=== PATIENT | female | born 1955 | race Caucasian/White ===

== ENCOUNTER 2019-03-19 17:50 | Emergency (ER) | payer BC, MEDICARE ==
[2019-03-19] MEDS ORDERED: Alteplase 2 MG Vial IVPUSH ONE (18:27)
--- NOTE | 2019-03-19 18:34 | EDM.PDOC ---
<JoyaLona Mitch - Last Filed: 03/19/19 19:16> ED HPI GENERAL MEDICAL PROBLEM - General Chief Complaint: IV Access Related Stated Complaint: CHECK OUT PICK LINE Time Seen by Provider: 03/19/19 19:20 Source of Information: Reports: Patient History Limitations: Reports: No Limitations - History of Present Illness INITIAL COMMENTS - FREE TEXT/NARRATIVE: ED for Alteplase for blocked chemo port. Stated attempted to have flushed 2 times in [place] today and unable . Told By Oncology to come here. Right Knee Pain Score (Numeric/FACES): 7 - Related Data Allergies Allergy/AdvReac Type Severity Reaction Status Date / Time Penicillins Allergy Hives Verified 03/19/19 18:51 Sulfa (Sulfonamide Allergy Hives Verified 03/19/19 18:51 Antibiotics) mushrooom Allergy Airway Uncoded 03/19/19 18:51 Tightness Course - Vital Signs Last Recorded V/S: Last Vital Signs Temp 98.4 F 03/19/19 18:10 Pulse 76 03/19/19 18:10 Resp 20 03/19/19 18:10 BP 186/74 H 03/19/19 18:10 Pulse Ox 97 03/19/19 18:10 - Orders/Labs/Meds Meds: Medications Discontinued Medications Generic Name Dose Route Start Last Admin Trade Name Judd PRN Reason Stop Dose Admin Alteplase, Recombinant 2 mg 03/19/19 18:27 03/19/19 18:54 Cathflo Activase IVPUSH 03/19/19 18:28 2 mg ONETIME ONE Administration - Radiology Interpretation Free Text/Narrative:: TC Dr Theodore Oncology, Alteplase 2mg IV recommended. If unable to flush Line following Alteplace. Patient should call Home Infusion team in AM. Departure - Departure Disposition: Home, Self-Care 01 Clinical Impression: Occluded PICC line Qualifiers: Encounter type: initial encounter Qualified Code(s): T82.898A - Other specified complication of vascular prosthetic devices, implants and grafts, initial encounter - Discharge Information Forms: ED Department Discharge Additional Instructions: Follow up with Home Care infusion at [facility] Sepsis Event Note - Evaluation Sepsis Screening Result: No Definite Risk - Focused Exam Vital Signs: Vital Signs Temp Pulse Resp BP Pulse Ox 03/19/19 18:10 98.4 F 76 20 186/74 H 97 Date Exam was Performed: 03/19/19 Time Exam was Performed: 19:16 <Haydee Huynh - Last Filed: 03/19/19 19:44> ED HPI GENERAL MEDICAL PROBLEM - History of Present Illness Onset: Today, Sudden ED ROS GENERAL - Review of Systems Review Of Systems: Comprehensive ROS is negative, except as noted in HPI. ED EXAM, GENERAL - Physical Exam Exam: See Below Exam Limited By: No Limitations General Appearance: Alert, WD/WN, No Apparent Distress Eye Exam: Bilateral Eye: EOMI, Normal Inspection Ears: Normal External Exam, Hearing Grossly Normal Nose: Normal Inspection Throat/Mouth: Normal Inspection, Normal Voice, No Airway Compromise Head: Atraumatic, Normocephalic Neck: Normal Inspection Respiratory/Chest: No Respiratory Distress, Lungs Clear, Normal Breath Sounds, No Accessory Muscle Use, Chest Non-Tender Cardiovascular: Normal Peripheral Pulses, No Edema, No JVD, No Murmur, No Rub, Gallop/S3 Peripheral Pulses: 2+: Radial (L), Radial (R) GI/Abdominal: Normal Bowel Sounds, Soft, Non-Tender (Female) Exam: Deferred Rectal (Female) Exam: Deferred Back Exam: Normal Inspection, Full Range of Motion, NT Extremities: Normal Inspection, Normal Range of Motion, Non-Tender, Normal Capillary Refill, No Pedal Edema Neurological: Alert, Oriented, CN II-XII Intact, Normal Cognition, Normal Gait, Normal Reflexes, No Motor/Sensory Deficits Psychiatric: Normal Affect, Normal Mood Skin Exam: Warm, Dry, Intact, Normal Color, No Rash Lymphatic: No Adenopathy Course - Re-Assessments/Exams Free Text/Narrative Re-Assessment/Exam: 03/19/19 19:43 PICC line flushes well after alteplase. Departure - Departure Time of Disposition: 19:31 Condition: Good - Discharge Information *PRESCRIPTION DRUG MONITORING PROGRAM REVIEWED*: No *COPY OF PRESCRIPTION DRUG MONITORING REPORT IN PATIENT EMANI: No Sepsis Event Note - Focused Exam Date Exam was Performed: 03/19/19 Time Exam was Performed: 19:42
== END 2019-03-19 19:38 | disposition home or self-care (01) ==
LOC: DL.ED 17:50
DX: T82.898A Other specified complication of vascular prosthetic devices, implants and grafts, initial encounter (principal); Z88.0 Allergy status to penicillin; Z88.2 Allergy status to sulfonamides; Z91.018 Allergy to other foods; Y71.2 Prosthetic and other implants, materials and accessory cardiovascular devices associated with adverse incidents
CPT/HCPCS: 96374; 99283; J2997; 36593